=== PATIENT | female | born 1960 | race African-American/Black ===

== ENCOUNTER 2017-08-22 02:15 | Inpatient (IN) | payer OTHER ==
[~2017-08-22] VITALS: Ht 157.5 cm; Wt 93.4 kg
[~2017-08-22 02:15] MED LIST: HYZAAR 50-12.51 EACH PO; VENTOLIN HFA18 GM INH
--- NOTE | 2017-08-22 13:40 | Operative Report ---
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 After this a Janessa retractor was placed in the lamina was thinned with the high-speed bur and laminectomies performed with removal the lateral third of the ligamentum flavum at L4 5 and L5-S1. Severe stenosis from large herniated fragment located medial to the pedicle of L5 as well as a large herniated fragment superior to the L5-S1 disc space on the left. Avoiding any tension on the L5 nerve the disc fragments were removed. The wound was copiously irrigated Gelfoam was laid over the laminotomy site and a closure the lumbodorsal fascia was performed with absorbable suture the skin was closed with subcuticular nylon. After placement sterile dressings patient was log rolled onto the stretcher
[2017-08-22] MEDS ORDERED: HYDROCHLOROTH12.5 M2 PO (14:22)
--- NOTE | 2017-08-22 14:46 | Patient Discharge Instructions ---
Acute Coronary Syndrome Inclusion Criteria At DC or during hospital stay patient has or had the following: ACS DIAGNOSIS No Discharge Core Measures Meds if any: Prescribed or Continued at Discharge Meds if any: NOT Prescribed or Continued at Discharge Congestive Heart Failure Inclusion Criteria At DC or during hospital stay patient has or had the following: CHF DIAGNOSIS No Discharge Core Measures Meds if any: Prescribed or Continued at Discharge Meds if any: NOT Prescribed or Continued at Discharge Cerebrovascular accident Inclusion Criteria At DC or during hospital stay patient has or had the following: CVA/TIA Diagnosis No Discharge Core Measures Meds if any: Prescribed or Continued at Discharge Meds if any: NOT Prescribed or Continued at Discharge Venous thromboembolism Inclusion Criteria VTE Diagnosis No VTE Type NONE VTE Confirmed by (Test) NONE Discharge Core Measures - Per Current guidelines, there needs to be overlap - treatment for the first 5 days of Warfarin therapy. - If discharged on Warfarin prior to 5 days of - overlap therapy, the patient will need to be - assessed for post discharge needs including - *Post discharge parental anticoagulation - *Warfarin and/or parental anticoagulation education - *Follow up date to check INR post discharge At least 5 days overlap therapy as Inpatient No Meds if any: Prescribed or Continued at Discharge Note: Overlap Therapy is Warfarin and Anticoagulant Meds if any: NOT Prescribed or Continued at Discharge
[2017-08-22] MEDS ORDERED: DULCOLAX10 M1 RC (14:50)
[2017-08-22] MEDS ORDERED: PERCOCET 5-3251 EACH PO (14:50)
[2017-08-22] MEDS ORDERED: COLACE100 M1 PO (14:50)
[2017-08-22] MEDS ORDERED: MULTIVITAMINS1 EAC9 PO (14:50)
[2017-08-22] MEDS ORDERED: TYLENOL EXTRA500 M2 PO (14:50)
[2017-08-22] MEDS ORDERED: MILK OF MA400 MG/52 PO (14:50)
[2017-08-22 15:12] VITALS: BP 130/70
--- NOTE | 2017-08-22 16:02 | RADIOLOGY REPORT ---
EXAMINATION: XR LUMBAR SPINE CLINICAL INFORMATION: L5-S1 laminectomy. COMPARISON: None TECHNIQUE: Single lateral spot fluoroscopy image of the lower lumbar spine. Number of saved images: 1 Fluoroscopy time: 0.1 minutes. Dose: 4.68 mGy (0.152 mGym2) FINDINGS: The saved fluoroscopic image is not of diagnostic quality. A surgical instrument is directed to the region of the L5 lamina. IMPRESSION: Intraoperative fluoroscopic imaging performed at the time of L5-S1 laminectomy.
--- NOTE | 2017-08-22 17:36 | PN- Orthopedic ---
Subjective Subjective: Patient without complaints, sitting in bed comfortable, pain controlled ate full dinner Objective Vital Signs and I&Os Vital Signs Date Time Temp Pulse Resp B/P B/P Pulse O2 O2 Flow FiO2 Mean Ox Delivery Rate 08/22 1512 97.8 62 18 130/70 94 Room Air Intake & Output 08/22 1600 08/22 0800 08/22 0000 08/21 1600 08/21 0800 08/21 0000 Intake Total Output Total Balance Patient 206 lb Weight Physical Exam: alert and oriented lumbar dressings - CDI without drainage bilateral lower extremities motor 5/5 except for left ankle weakness 4/5 which was there preop. no radicular pain, sensory intac distal pulses intact calves soft Assessment/Plan Assessment/Plan postop check 56 y/o female with HNP L4 -S1 s/p laminectomies left L4 5 S1 with discectomy L4 5 L5-S1 intraop blood loss minimal at 50cc VSS, pain controlled advance diet, ambulate with assistance Core Measures Venous Thromboembolism VTE Risk Factors Surgery No Mechanical VTE Prophylaxis d/t N/A MechProphylax Ordered No VTE Pharm Prophylaxis d/t NA PharmProphylax ordered
[2017-08-22 22:15] VITALS: BP 140/80
[2017-08-23 06:22] VITALS: BP 112/68
[2017-08-23 08:17] VITALS: BP 112/68
--- NOTE | 2017-08-23 13:37 | Surg Short-stay <48hrs Dis Sum ---
Visit Information Visit Dates Admission Date: 08/22/17 Discharge Date: 08/23/17 Surgical Short Stay DC Summary Admission Diagnosis: HNP L4-5, L5-S1 left Final Diagnosis: same as above, s/p Surgery Date: 08/22/17 Name of Procedure: Laminectomies left L4/5, L5/S1 with discectomy Procedure(s): Surgery Date: 08/22/17 Name of Procedure: Laminectomies left L4/5, L5/S1 with discectomy Summary/Significant Findings: Electively scheduled laminectomies left L4/5, L5/S1 with discectomy on 08/22/17 by . Diet advanced as tolerated. Pain control transitioned from iv to oral medication. PT eval done on POD#1 determined patient was safe for discharge. The patient was seen by on the day of discharge. Condition at Discharge: stable Discharge Disposition: home or self care Discharge instructions provided to patient/family: Yes Post discharge follow-up plan: follow up with as instructed
--- NOTE | 2017-08-23 16:20 | PN- Orthopedic ---
Subjective Subjective: Patient c/o mild and expected postop incisional discomfort. + numbness in left foot but less weakness. No leg or foot pain. Eusebia po. +Voiding. +flatus. No fever /chills. Ambulating without difficulty. Review of Systems: Remarkable for the above complaints. Objective Vital Signs and I&Os Vital Signs Date Time Temp Pulse Resp B/P B/P Pulse O2 O2 Flow FiO2 Mean Ox Delivery Rate 08/23 0817 97.8 68 20 112/68 08/23 0622 97.8 68 20 11268 97 Room Air 08/22 2215 98.2 72 20 140/80 98 Room Air 08/22 1822 Room Air Intake & Output 08/23 1600 08/23 0800 08/23 0000 08/22 1600 08/22 0800 08/22 0000 Intake Total 640 100 Output Total 200 450 350 Balance -200 -450 290 100 Intake, IV 100 Intake, Oral 640 0 Output, Urine 200 450 350 Patient 206 lb 194 lb Weight Weight Bed scale Reported by Patient Measurement Method Physical Exam General Appearance: well developed/nourished, no apparent distress, alert, comfortable Respiratory: normal breath sounds, no respiratory distress Cardiovascular: regular rate/rhythm Abdomen: normal bowel sounds, soft, non-tender Back: Incision C/D/I. Dressing changed. Neurologic/Psychiatric: Neurovascularly stable with no new or worsening gross motor or sensory loss in surya. lower extremities. + improved strength in left ant. tib. Skin: intact, normal color Current Medications: Current Medications Sig/Ryan Start time Last Medication Dose Route Stop Time Status Admin Acetaminophen 650 MG .STK-MED ONE 08/23 0759 DC PO 08/23 0800 Acetaminophen 650 MG Q4P PRN 08/22 1445 DCD 08/23 PO 0816 Albuterol Sulfate 2 PUF Q4-6 PRN PRN 08/22 1430 DCD INH Bisacodyl 10 MG DAILY NEEDED PRN 08/22 1445 DCD MA Cefazolin Sodium 1,000 MG IQ8 08/22 1600 DC 08/23 IV 08/23 0801 0815 Docusate Sodium 100 MG TID 08/22 2100 DCD 08/23 PO 0817 Hydrochlorothiazide 12.5 MG DAILY 08/23 0900 DCD 08/23 PO 0817 Lactated Ringer's 1,000 ML Q10H 08/22 1445 DC 08/22 IV 2129 Losartan Potassium 50 MG DAILY 08/23 0900 DCD 08/23 PO 0817 Magnesium Hydroxide 30 ML Q8P PRN 08/22 1445 DCD PO Morphine Sulfate 1 MG Q3P PRN 08/22 1445 DCD IV Multivitamins 1 TAB DAILY 08/23 0900 DCD 08/23 PO 0816 Ondansetron HCl 4 MG Q6P PRN 08/22 1445 DCD 08/22 IV 2127 Oxycodone/ 1 TAB Q4P PRN 08/22 1445 DCD Acetaminophen PO Oxycodone/ 2 TAB Q4P PRN 08/22 1445 DCD 08/23 Acetaminophen PO 1348 Patient Medication 1 ED ONE ONE 08/23 1345 DC Teaching ED 08/23 1346 Trimethobenzamide HCl 200 MG Q6P PRN 08/22 1445 DCD IM Assessment/Plan Assessment/Plan Assessment: s/p left L4-5 and L5-S1 Microdiscectomy Plan: D/C Home D/C IV Continue po Percocet Will F/U as outpatient Do's and Don'ts explained Disch. Instr. given Problem List: 1. Hypertension 2. Asthma Core Measures Venous Thromboembolism VTE Risk Factors Surgery No Mechanical VTE Prophylaxis d/t N/A MechProphylax Ordered No VTE Pharm Prophylaxis d/t NA PharmProphylax ordered Attending MD Review Statement Attending Statement Attending MD Statement: examined this patient, discuss w/resident/PA/SKIP PIT WORKER, agreed w/resident/PA/SKIP PIT WORKER
== END 2017-08-23 14:00 | DRG 520 ==
LOC: SDA 02:15 → ENRESERV 14:22 → ENTRNSPT 14:44 → EDTRNSPTSTS 15:05 → EDTRNSPT 15:05 → 2NA 15:20 → CMPTRNSPT 15:21 → 2NA 08-23 14:00
PROC: 0SB40ZZ Excision of Lumbosacral Disc, Open Approach (ICD-10-PCS; principal; 2017-08-22)
DX: M51.27 Other intervertebral disc displacement, lumbosacral region (principal); I10 Essential (primary) hypertension; J45.909 Unspecified asthma, uncomplicated; Z68.37 Body mass index [BMI] 37.0-37.9, adult
CPT/HCPCS: 2NASP; 36415; 72020; 97116-GO; 97161-GP; J0131; J0690; J2405; J3250; J3490; J7120